=== PATIENT | male | born 1945 | race Caucasian/White ===

== ENCOUNTER 2023-02-20 17:14 | Emergency (ER) | payer BC, MEDICARE ==
[2023-02-20 17:46] LABS: BASOPHILS ABSOLUTE AUTO 0.03 K/mm3 (0.01-0.08); BASOPHILS PERCENT AUTO 0.2 % (0.1-1.2); EOSINOPHILS ABSOLUTE AUTO 0.28 K/mm3 (0.04-0.54); EOSINOPHILS PERCENT AUTO 1.4 (0.8-7.0); HEMATOCRIT 35.8 % (40.1-51.0); HEMOGLOBIN 11.9 gm/dl (13.7-17.5); IMMATURE GRAN ABSOLUTE AUTO 0.07 K/mm3 (0.00-0.10); IMMATURE GRAN PERCENT AUTO 0.4 % (<=1.0); LYMPHOCYTES PERCENT AUTO 11.1 % (21.8-53.1); MEAN CORPUSCULAR HEMOGLOBIN 28.8 pg (25.7-32.2); MEAN CORPUSCULAR HGB CONC 33.2 g/dl (32.2-35.5); MEAN CORPUSCULAR VOLUME 86.7 fl (79.0-92.2); MEAN PLATELET VOLUME 9.5 fl (9.4-12.3); MONOCYTES PERCENT AUTO 8.6 % (5.3-12.2); NEUTROPHILS PERCENT AUTO 78.3 % (34.0-67.9); PLATELET COUNT,PLT 463 K/mm3 (163-337); RED BLOOD CELL COUNT 4.13 M/mm3 (4.63-6.08); WHITE BLOOD CELL COUNT,WBC 19.78 K/mm3 (4.23-9.07)
[2023-02-20 18:07] LABS: INR 1.02; PROTHROMBIN TIME 10.9 SECONDS (9.7-12.0)
[2023-02-20 18:08] LABS: PTT,PARTIAL THROMBOPLSTIN TIME 31.5 SECONDS (21.7-31.4)
[2023-02-20] MEDS ORDERED: Albuterol 0.083% 2.5 MG/3 ML Neb Soln NEB ONE (18:08)
[2023-02-20 18:12] LABS: D-DIMER QUANTITATIVE 0.72 mg/L (0.19-0.50)
[2023-02-20 18:13] LABS: A/G RATIO 0.6 (1-2); ALBUMIN 2.8 g/dl (3.4-5.0); BILIRUBIN TOTAL 0.3 mg/dL (0.2-1.0); BUN/CREATININE RATIO 24.5 (14-18); CALCIUM 9.1 mg/dL (8.5-10.1); CREATININE 1.1 mg/dL (0.7-1.3); EST CRCL DRUG DOSING (CG) 57.13 mL/min; PROTEIN TOTAL,TP 7.2 g/dl (6.4-8.2)
[2023-02-20 18:15] LABS: C-REACTIVE PROTEIN 13.7 mg/dL (<1.0)
[2023-02-20] MEDS ORDERED: Amoxicillin/Clavulanate K 875-125 MG Tab PO ONE (18:17)
[2023-02-20] MEDS ORDERED: Azithromycin 250 MG Tab PO ONE (18:17)
[2023-02-20 18:51] LABS: SLIDE REVIEW ABNORMAL SMEAR
== END 2023-02-20 18:46 | disposition home or self-care (01) ==
LOC: JD.ED 17:14
DX: J18.9 Pneumonia, unspecified organism (principal); F17.210 Nicotine dependence, cigarettes, uncomplicated
CPT/HCPCS: 36415; 71045; 80053; 83880; 84484; 85025; 85379; 85610; 85730; 86140; 93005; 94640; 99285; A9270; J7620-GY